=== PATIENT | male | born 1965 | race African-American/Black ===

== ENCOUNTER 2018-11-24 00:19 | Inpatient (IN) | payer OTHER ==
[2018-11-24] MEDS ORDERED: Ketorolac INJ* 30 MG/ML 1 ML VIAL IV PUSH ONE (00:39)
[2018-11-24] MEDS ORDERED: NS 0.9% 1000 ML** 2,000 ML IV ONE (00:39)
--- NOTE | 2018-11-24 00:46 | ED ---
GI/ HPI - HPI Summary HPI Summary: 53-year-old male presents with abdominal pain. The pain is located in the right lower quadrant. He admits to loose stool. He denies any blood or mucus in stool. No recent antibiotic use. Stools are not watery. Denies any nausea vomiting. No history of diverticulitis or colitis. No previous bowel surgeries. Has no medical conditions. Denies any fevers. No chest pain or shortness breath. took ibuprofen for the pain without relief. Walking does not change pain. - History of Current Complaint Chief Complaint: EDAbdPain Time Seen by Provider: 11/24/18 00:30 Stated Complaint: ABD PAIN PER CO Pain Intensity: 8 - Allergy/Home Medications Allergies/Adverse Reactions: Allergies Allergy/AdvReac Type Severity Reaction Status Date / Time No Known Allergies Allergy Verified 11/24/18 00:22 PMH/Surg Hx/FS Hx/Imm Hx Endocrine/Hematology History: Denies: Hx Anticoagulant Therapy Cardiovascular History: Denies: Hx Hypertension Respiratory History: Denies: Hx Asthma Infectious Disease History: No Infectious Disease History: Denies: Traveled Outside the [place] in Last 30 Days - Family History Known Family History: Positive: Non-Contributory - Social History Alcohol Use: None Substance Use Type: Reports: None Smoking Status (MU): Current Every Day Smoker Review of Systems Negative: Fever Negative: Chest Pain Negative: Shortness Of Breath Positive: Abdominal Pain, Diarrhea. Negative: Vomiting, Nausea All Other Systems Reviewed And Are Negative: Yes Physical Exam Triage Information Reviewed: Yes Vital Signs On Initial Exam: Initial Vitals Temp Pulse Resp BP Pulse Ox 98.2 F 66 18 117/82 97 11/24/18 00:20 11/24/18 00:20 11/24/18 00:20 11/24/18 00:20 11/24/18 00:20 Vital Signs Reviewed: Yes Appearance: Positive: Well-Appearing Skin: Positive: Warm, Dry Head/Face: Positive: Normal Head/Face Inspection Eyes: Positive: Normal, Conjunctiva Clear ENT: Positive: Pharynx normal Respiratory/Lung Sounds: Positive: Clear to Auscultation, Breath Sounds Present Cardiovascular: Positive: Normal, RRR Abdomen Description: Positive: Soft, Other: - tenderness in RLQ. Negative: CVA Tenderness (R), CVA Tenderness (L) Bowel Sounds: Positive: Present Musculoskeletal: Positive: Normal Neurological: Positive: Normal Psychiatric: Positive: Normal Diagnostics - Vital Signs Vital Signs Temp Pulse Resp BP Pulse Ox 11/24/18 00:20 98.2 F 66 18 117/82 97 - Laboratory Result Diagrams: 11/24/18 01:22 11/24/18 01:22 Lab Statement: Any lab studies that have been ordered have been reviewed, and results considered in the medical decision making process. Re-Evaluation - Re-Evaluation First Eval Re-Evaluation Time: 02:03 Change: Improved Comment: pain improved GIGU Course/Dx - Course Course Of Treatment: 53-year-old male presents with abdominal pain. The pain is located in the right lower quadrant. He admits to loose stool. He denies any blood or mucus in stool. No recent antibiotic use. Stools are not watery. Denies any nausea vomiting. No history of diverticulitis or colitis. No previous bowel surgeries. Has no medical conditions. Denies any fevers. No chest pain or shortness breath. took ibuprofen for the pain without relief. Walking does not change pain. On exam tenderness in right lower quadrant. No rebound. wbc 11. crp elevated. patient will be signed out to Dr Vogel pending CT - Diagnoses Differential Diagnoses - Male: Appendicitis, Colitis, Diverticulosis, Gastroenteritis (Viral) Provider Diagnoses: Acute abdominal pain, Terminal ileitis Discharge - Sign-Out/Discharge Documenting (check all that apply): Sign-Out Patient Signing out patient TO: Agusto Vogel - Discharge Plan Condition: Fair Disposition: ADMITTED TO [facility] Referrals: Yumiko MAE,Aureliano Mccrary [Primary Care Provider] - - Billing Disposition and Condition Condition: FAIR Disposition: Admitted to [facility]
[2018-11-24 01:39] LABS: ABS Eosinophils 0.1 10^3/ul (0-0.6); ABS Lymphocytes 2.3 10^3/ul (1.0-4.8); ABS Neutrophils 7.8 10^3/ul (1.5-7.7); Eosinophil % 1.2 %; Hematocrit 41 % (42-52); Hemoglobin 13.7 g/dL (14.0-18.0); Lymphocyte % 20.4 %; Mean Corpuscular HGB Conc 33 g/dL (31-36); Mean Corpuscular Hemoglobin 31 pg (27-31); Mean Corpuscular Volume 92 fL (80-94); Mean Platelet Volume 7.1 fL (7.4-10.4); Nucleated Red Blood Cells % 0.1; Platelet Count 238 10^3/uL (150-450); Red Blood Count 4.47 10^6 /uL (4.18-5.48); Red Cell Distribution Width 15 % (10-15); White Blood Count 11.3 10^3/uL (3.5-10.8)
[2018-11-24 01:49] LABS: Albumin 3.8 g/dL (3.2-5.2); Calcium 8.7 mg/dL (8.6-10.3); Potassium 3.6 mmol/L (3.5-5.0); Total Bilirubin 0.5 mg/dL (0.2-1.0)
[2018-11-24 01:55] LABS: Albumin/Globulin Ratio 1.4 (1-3); BUN/Creatinine Ratio 24.3 (8-20); C Reactive Protein 150.88 mg/L (<8.01); EGFR African American 134.4 (>60); EGFR Non-African American 111.1 (>60); Globulin 2.8 g/dL (2-4); Total Protein 6.6 g/dL (6.4-8.9)
[2018-11-24] MEDS ORDERED: Iohexol 300* (CONTRAST) 10 ML SDV IV ONE (02:34)
--- NOTE | 2018-11-24 02:56 | ED ---
Progress - Progress Note Progress Note: This patient was signed out from [place], to Dr. Vogel at 02:[address] abdomen pelvis. Abdomen/pelvis CT impression: Inflammatory changes involving the terminal ileum, cecum and ascending colon. This is typified by abnormal thickening of the bowel wall. Associated inflammatory changes involving the mesentery. Fluid located in the right lower paracolic gutter. Small mild fluid in the pelvis. Associated mesenteric adenopathy. These findings are consistent with an inflammatory bowel disorder like regional enteritis. However this is not pathognomonic. This could be secondary to an infection. ED physician has reviewed this imaging report. Discussed case with Dr. Adam, hospitalist, who accepted the patient for admission. The patient is agreeable with this plan. Re-Evaluation - Re-Evaluation First Eval Re-Evaluation Time: 02:03 Change: Improved Comment: pain improved Course/Dx - Course Course Of Treatment: This patient was signed out from [place] Park, to Dr. Vogel at 02:30 11/24/[address] abdomen pelvis. Abdomen/pelvis CT impression: Inflammatory changes involving the terminal ileum, cecum and ascending colon. This is typified by abnormal thickening of the bowel wall. Associated. inflammatory changes involving the mesentery. Fluid located in the right lower. paracolic gutter. Small mild fluid in the pelvis. Associated mesenteric. adenopathy. These findings are consistent with an inflammatory bowel disorder. like regional enteritis. However this is not pathognomonic. This could be. secondary to an infection. ED physician has reviewed this imaging report. Discussed case with Dr. Adam, stephen, who accepted the patient for admission. The patient is agreeable with this plan. - Diagnoses Provider Diagnoses: Acute abdominal pain, Terminal ileitis - Provider Notifications Discussed Care Of Patient With: Doyle Adam Time Discussed With Above Provider: 03:30 Instructed by Provider To: Admit As Inpatient Discharge - Sign-Out/Discharge Documenting (check all that apply): Patient Departure - admit, Receiving Sign- Out Receiving patient FROM: Maria Luz Ortiz - pending CT abdomen/pelvis Patient Received Moderate/Deep Sedation with Procedure: No - Discharge Plan Condition: Fair Disposition: ADMITTED TO [facility] Referrals: Yumiko MAE,Aureliano Mccrary [Primary Care Provider] - - Billing Disposition and Condition Condition: FAIR Disposition: Admitted to [facility] - Attestation Statements Document Initiated by Lee: Yes Documenting Scribe: Andrews Avery Provider For Whom Lee is Documenting (Include Credential): Agusto Vogel MD Scribe Attestation: Andrews Garcia, scribed for Agusto Vogel MD on 11/24/18 at 0603. Scribe Documentation Reviewed: Yes Provider Attestation: The documentation as recorded by the Andrews cabrera accurately reflects the service I personally performed and the decisions made by meAgusto MD Status of Scribe Document: Viewed
[2018-11-24 04:27] LABS: Urine Appearance Clear; Urine Bacteria Absent (Absent); Urine Bilirubin Negative (Negative); Urine Blood 1+ (Negative); Urine Color Yellow; Urine Glucose Negative (Negative); Urine Ketones Negative (Negative); Urine Nitrite Negative (Negative); Urine Protein Negative (Negative); Urine Red Blood Cell Trace(0-2/hpf) (Absent); Urine Specific Gravity 1.011 (1.010-1.030); Urine Urobilinogen Negative (Negative); Urine White Blood Cell Trace(0-5/hpf) (Absent)
[2018-11-24] MEDS ORDERED: Ciprofloxacin 400MG IVPREMIX(* 400 MG/200 ML BAG IVPB ONE (05:30)
--- NOTE | 2018-11-24 05:45 | HP ---
History of Present Illness - History of Present Illness Reason for Visit: Abdominal Pain and diarrhea History of Present Illness: 53yoM with no past medical history here due to RLQ abdominal pain and diarrhea for over two weeks. He has seen the residential RN who gave a dose of miralax yesterday but patient hasn't improved. Denies any fever, chills or vomiting. Or any chest pain or shortness of breath. - Past Surgical History Past Surgical History: Other - States he had some testicular surgery when he was 9 years old but no testies were removed. - Past Family History Family History: None - Past Social History Smoke: 1 pack per day, <1 pack per day Alcohol: None Drugs: Marijuana - Used to smoke 8 years ago but never tried anything else. Review of Systems - Measurements Intake and Output: Intake and Output Last 24 Hours 11/21/18 11/22/18 11/23/18 11/24/18 06:59 06:59 06:59 06:59 Intake Total 1000 Balance 1000 Weight 187 lb Intake: IV Fluids 1000 - Review of Systems Constitutional Symptoms: Negative: Weakness, Fever Dermatology: Positive: Normal HEENT: Negative: Change in Hearing Eyes: Negative: Change in Vision Pulmonary: Negative: Cough, Sputum, Wheezing, Respiratory Distress, Shortness of Breath Cardiology: Negative: Chest Pain, Shortness of Breath Gastroenterology: Positive: Abdominal Pain, Diarrhea Hematologic/Lymphatic: Negative: Anemia Neurology: Negative: Headache Psychiatry: Negative: Depression Objective Active Medications: Ciprofloxacin/Dextrose (Cipro 400 Mg Ivpremix(*)) 400 mg in 200 mls @ 200 mls/ hr IVPB Q12H HUMPHREY; Protocol Metronidazole/Sodium Chloride (Flagyl 500 Mg Ivpb*) 500 mg in 100 mls @ 100 mls /hr IVPB Q8H HUMPHREY Ciprofloxacin/Dextrose (Cipro 400 Mg Ivpremix(*)) 400 mg in 200 mls @ 200 mls/ hr IVPB ONCE ONE Stop: 11/24/18 06:29 Vital Signs - 8 hr 11/24/18 11/24/18 00:20 03:40 Temperature 98.2 F 98.6 F Pulse Rate 66 53 Respiratory 18 16 Rate Blood Pressure 117/82 125/65 (mmHg) O2 Sat by Pulse 97 98 Oximetry Oxygen Devices in Use Now: None Eyes: No Scleral Icterus, PERRLA Ears/Nose/Mouth/Throat: NL Teeth, Lips, Gums, Mucous Membranes Moist Neck: NL Appearance and Movements; NL JVP Respiratory: Clear to Auscultation Cardiovascular: NL Sounds; No Murmurs; No JVD Abdominal: - - Severe RLQ tenderness. Skin: No Rash or Ulcers Neurological: Alert and Oriented x 3, NL Sensation, NL Muscle Strength and Tone Result Diagrams: 11/24/18 01:22 11/24/18 01:22 Diagnostic Imaging: CT ABD/PELVIS IMPRESSION: Inflammatory changes involving the terminal ileum, cecum and ascending colon. This is typified by abnormal thickening of the bowel wall. Associated inflammatory changes involving the mesentery. Assess/Plan/Problems-Billing Assessment: 53yoM without any medical problem sent from residential due to RLQ pain. Admitted to inflammatory changes to Cecum and ascending colon. - Patient Problems (1) Colitis, acute Current Visit: Yes Status: Acute Code(s): K52.9 - NONINFECTIVE GASTROENTERITIS AND COLITIS, UNSPECIFIED SNOMED Code(s): 21400704 Comment: Infectious vs inflammatory. Start Cipro/Flagyl for now. Consult GI regarding any further colonoscopy. Allergies/Medications Allergies/Adverse Reactions: Allergies Allergy/AdvReac Type Severity Reaction Status Date / Time No Known Allergies Allergy Verified 11/24/18 00:22
[2018-11-24] MEDS ORDERED: diPHENhydraMINE IV* 50 MG/ML 1 ml VIAL (BENADRYL) ONE (06:55)
[2018-11-24] MEDS ORDERED: diPHENhydraMINE IV* 50 MG/ML 1 ml VIAL (BENADRYL) IV ONE (06:57)
[2018-11-24] MEDS ORDERED: methylPREDNISolone 125 MG* 2 ML VIAL ONE (07:10)
[2018-11-24] MEDS ORDERED: methylPREDNISolone 125 MG* 2 ML VIAL IV ONE (07:12)
[2018-11-24] MEDS ORDERED: Albuterol 2.5 MG/3 ML NEB.SOL* (0.083%) INH ONE (07:42)
--- NOTE | 2018-11-24 07:44 | ED ---
Progress - Progress Note Progress Note: 0713 - Patient had been given Cipro and had an allergic reaction within a minute of Cipro administration. Patient had normal speech, hives at left antecubital area just above IV. Faint hives at chest, scattered expiratory wheezes. Uvula is midline and not swollen. Cirpo discontinued immediately, Dr. Balderrama gave verbal orders for Benadryl and Solu-medrol. Respiratory called for albuterol treatment. 0734 - Patient's case was discussed with Dr. Carline Leyva. 0742 - [facility], discussed patient's case and the need for solu-medrol and Benadryl verbal orders to be signed. She changed order for Benadryl and Solu- Medrol to be listed under Princess Balderrama. She will call hospitalist to change antibiotics for the patient and pt will be listed as allergic to Cipro. Re-Evaluation - Re-Evaluation First Eval Re-Evaluation Time: 07:13 Change: Worse Comment: 0713 - Patient had been given Cipro and had an allergic reaction within a minute of Cipro administration. Patient had normal speech, hives at left antecubital area just above IV. Faint hives at chest, scattered expiratory wheezes. Uvula is midline and not swollen. Cirpo discontinued immediately, Dr. Balderrama gave verbal orders for Benadryl and Solu-medrol. Respiratory called for albuterol treatment. Course/Dx - Course Course Of Treatment: 13 - Patient had been given Cipro and had an allergic reaction within a minute of Cipro administration. Patient had normal speech, hives at left antecubital area just above IV. Faint hives at chest, scattered expiratory wheezes. Uvula is midline and not swollen. Cirpo discontinued immediately, Dr. Balderrama gave verbal orders for Benadryl and Solu-medrol. Respiratory called for albuterol treatment. 0734 - Patient's case was discussed with Dr. Danita Leyva. 0742 - [facility], discussed patient's case and the need for solu-medrol and Benadryl verbal order. She changed order for Benadryl to be listed under Princess Balderrama. She will call hospitalist to change antibiotics for the patient. Acceptance of patient had already been obtained by previous ED physician, Dr. Vogel. Patient remains agreeable with admission. - Diagnoses Provider Diagnoses: Colitis, Abdominal pain, Acute allergic reaction - Provider Notifications Discussed Care Of Patient With: Carline Leyva Time Discussed With Above Provider: 07:34 Instructed by Provider To: Other - 0734 - Patient's case was discussed with Dr. Carline Leyva. Dr. Leyva is advised that pt is allergic to Cipro and she will change his inpatient antibiotics. Discharge - Sign-Out/Discharge Documenting (check all that apply): Patient Departure - admit All imaging exams completed and their final reports reviewed: Yes Patient Received Moderate/Deep Sedation with Procedure: No - Discharge Plan Condition: Stable Disposition: ADMITTED TO [facility] - Billing Disposition and Condition Condition: STABLE Disposition: Admitted to [facility] - Attestation Statements Document Initiated by Lee: Yes Documenting Scribe: JASBIR STRATTON Provider For Whom Lee is Documenting (Include Credential): PRINCESS BALDERRAMA MD Scribe Attestation: JASBIR Garcia, scribed for PRINCESS BALDERRAMA MD on 11/26/18 at 2049. Scribe Documentation Reviewed: Yes Provider Attestation: The documentation as recorded by the JASBIR cabrera accurately reflects the service I personally performed and the decisions made by , PRINCESS BALDERRAMA MD Status of Scribe Document: Viewed
[2018-11-24] MEDS: NS 0.9% 1000 ML** 1,000 ML IV SCH ×2 (08:50→23:45)
[2018-11-24] MEDS: metroNIDAZOLE IV 500 MG/100ML* 500 MG/100 ML BAG IVPB SCH ×2 (10:21→16:35)
[2018-11-24] MEDS: cefTRIAXone* 1 GM in NS 0.9% 50 ML BAG IVPB SCH (11:33)
--- NOTE | 2018-11-24 17:22 | PN ---
Progress Note - Progress Note Date of Service: 11/24/18 Note: Patient interviewed and examined 4 PM. Mod RLQ tenderness. Hx pain x 2 wks. No family hx of bowel disease. Abnl CT scan and CRP, 2 wk hx of pain is suspicious for inflammatory bowel disease. Discussed with Dr. Ashton, consult requested. Possible limited colonoscopy 11/25. NPO after MN, clear liquid dinner today.
[2018-11-24] MEDS ORDERED: Ciprofloxacin 400MG IVPREMIX(* 400 MG/200 ML BAG IVPB SCH (18:00)
[2018-11-25] MEDS: cefTRIAXone* 1 GM in NS 0.9% 50 ML BAG IVPB SCH ×2 (01:38→10:32)
[2018-11-25] MEDS: metroNIDAZOLE IV 500 MG/100ML* 500 MG/100 ML BAG IVPB SCH ×2 (01:43→08:21)
--- NOTE | 2018-11-25 09:13 | PN ---
Progress Note - Progress Note Date of Service: 11/25/18 Note: Gi Brief Note Full consult dictated 53 year old male with RLQ pain, prior episode in February resolved on own. No black or blood. Now pain better, nearly resolved except for mild LLQ. Tolerating PO CT: Colitis/ileitis cecum/ascend/TI a/p 1.) Indeterminate colitis: cdiff neg, cultures pending but negative to date. Improved with IVF and antibiotics. Patient prefers to not be in hospital. Would prefer an outpatient colonoscopy. Clinically improved. Discussed risks, benefits and alternatives and would like to proceed with colonoscopy as outpatient. Change to PO antibiotics (e.g vantin/flagyl) x 14 days total. Will plan on outpatient colonoscopy in 2-3 weeks. Once tolerating PO and diet ok to be d/c from GI POSandy Ashton DO 11/25/18 [id number]
--- NOTE | 2018-11-25 12:36 | PN ---
Subjective Interval History: Afebrile, no acute events overnight Pain in suprapubic and LLQ resolved. RLQ pain improved to 3-4/10. states he had either [facility] or [facility]. Had regular dinner last night then npo midnight. Said he would refuse a colonoscopy unless completely sedated. Very worried (to the point of shouting) about any potential discharge today - wants to confirm that the po meds are continuing to help with his pain/ infection as feels completely without support if something were to regress at 5 points given lack of timely medical assessment. colonoscopy in 2-3 weeks per GI. BMs two regular yesterday. appetite improved, hungry and wanting to eat. Objective Active Medications: Cefdinir (Cefdinir Cap*) 300 mg PO BID [facility] Sodium Chloride (Ns 0.9% 1000 Ml) 1,000 mls @ 75 mls/hr IV PER RATE [facility] Last Admin: 11/24/18 23:45 Dose: 75 mls/hr Metronidazole (Flagyl Tab*) 500 mg PO TID [facility] Vital Signs - 8 hr 11/25/18 11/25/18 07:15 08:00 Temperature 97.6 F Pulse Rate 54 Respiratory 16 16 Rate Blood Pressure 110/63 (mmHg) O2 Sat by Pulse 98 Oximetry Oxygen Devices in Use Now: None Appearance: NAD Eyes: No Scleral Icterus, PERRLA Ears/Nose/Mouth/Throat: NL Teeth, Lips, Gums Neck: NL Appearance and Movements; NL JVP Respiratory: Symmetrical Chest Expansion and Respiratory Effort Cardiovascular: NL Sounds; No Murmurs; No JVD Abdominal: - - soft, moderate RLQ pain, no rebound or guarding. Extremities: No Edema, No Clubbing, Cyanosis Skin: No Rash or Ulcers Neurological: Alert and Oriented x 3, NL Muscle Strength and Tone Nutrition: Taking PO's Result Diagrams: 11/25/18 12:42 11/24/18 01:22 Additional Lab and Data: Laboratory Results - last 24 hr 11/25/18 11/25/18 12:41 12:42 WBC 16.6 H RBC 4.22 Hgb 12.4 L Hct 38 L MCV 90 MCH 30 MCHC 33 RDW 14 Plt Count 293 MPV 7.3 L Neut % (Auto) 80.9 Lymph % (Auto) 13.2 Metcalfe % (Auto) 5.2 Eos % (Auto) 0.4 Baso % (Auto) 0.3 Absolute Neuts (auto) 13.4 H Absolute Lymphs (auto) 2.2 Absolute Monos (auto) 0.9 H Absolute Eos (auto) 0.1 Absolute Basos (auto) 0.1 Absolute Nucleated RBC 0.0 Nucleated RBC % 0.0 C-Reactive Protein 105.28 H Microbiology and Other Data: Microbiology 11/24/18 14:00 Stool Stool Gross Appearance - Final 11/24/18 14:00 Stool Shiga Toxin I & II - Final Negative Shiga Toxin 1 & 2 11/24/18 04:15 Urine Urine Culture - Final No Growth (<1,000 CFU/mL) 11/24/18 14:00 Stool Stool Gross Appearance - Final 11/24/18 14:00 Stool C. difficile DNA Amplification - Final 027 Presumptive NEGATIVE Toxigenic C.diff NEGATIVE Diagnostic Imaging: CT ABD/PELVIS IMPRESSION: Inflammatory changes involving the terminal ileum, cecum and ascending colon. This is typified by abnormal thickening of the bowel wall. Associated inflammatory changes involving the mesentery. Assess/Plan/Problems-Billing Assessment: 53 yoM from [facility] current smoker [facility] due to RLQ pain. Admitted to inflammatory changes to Cecum and ascending colon. - Patient Problems (1) Colitis, acute Current Visit: Yes Status: Acute Code(s): K52.9 - NONINFECTIVE GASTROENTERITIS AND COLITIS, UNSPECIFIED SNOMED Code(s): 41339274 Comment: Infectious vs inflammatory. appreciate GI recs. Will plan as outpatient in 2-3 weeks. with improving RLQ denies blood in BMS low fiber diet. transition from IV cftx/flagyl to po cefdinir/flagyl. Likely d/c in AM with continued improvement. Limited access to volitional medical reassessment given incarceration. Leukocytosis worsening but CRP improved (2) Full code status Current Visit: Yes Status: Acute Code(s): Z78.9 - OTHER SPECIFIED HEALTH STATUS SNOMED Code(s): 427879959 (3) Smoker Current Visit: Yes Status: Acute Code(s): F17.200 - NICOTINE DEPENDENCE, UNSPECIFIED, UNCOMPLICATED SNOMED Code(s): 12286353 Status and Disposition: medicine inpatient, likely back to [facility] 7/6 if continued improvement.
[2018-11-25 12:56] LABS: ABS Basophils 0.1 10^3/ul (0-0.2); ABS Eosinophils 0.1 10^3/ul (0-0.6); ABS Lymphocytes 2.2 10^3/ul (1.0-4.8); ABS Monocytes 0.9 10^3/ul (0-0.8); ABS Neutrophils 13.4 10^3/ul (1.5-7.7); Eosinophil % 0.4 %; Hematocrit 38 % (42-52); Hemoglobin 12.4 g/dL (14.0-18.0); Lymphocyte % 13.2 %; Mean Corpuscular HGB Conc 33 g/dL (31-36); Mean Corpuscular Hemoglobin 30 pg (27-31); Mean Corpuscular Volume 90 fL (80-94); Mean Platelet Volume 7.3 fL (7.4-10.4); Platelet Count 293 10^3/uL (150-450); Red Blood Count 4.22 10^6 /uL (4.18-5.48); Red Cell Distribution Width 14 % (10-15); White Blood Count 16.6 10^3/uL (3.5-10.8)
[2018-11-25] MEDS: metroNIDAZOLE TAB* 250 MG PO SCH ×2 (13:31→20:47)
[2018-11-25] MEDS: NS 0.9% 1000 ML** 1,000 ML IV SCH (13:31)
[2018-11-25] MEDS: Cefdinir cap* 300 MG CAP PO SCH (15:10)
--- NOTE | 2018-11-25 18:55 | CONS ---
CC: Dr. Aureliano Calderon * CONSULTATION REPORT: DATE OF CONSULT: 11/25/18 PRIMARY CARE PROVIDER: Dr. Aureliano Calderon. REASON FOR CONSULTATION: Colitis. HISTORY OF PRESENT ILLNESS: This is a 53-year-old -[place]ian man, currently incarcerated, who presented to the ER on 11/24/18 with complaints of right lower quadrant abdominal pain and loose stool. He denies any yadi melena or hematochezia. He states he had a prior episode that was similar back in February that resolved on its own after 2 to 3 days; however, this episode continued to occur. He states these symptoms probably began about 5 or 6 days ago, but may have been lasting as long as 2 weeks. He states that he has had a little bit of difficulty moving his bowels. Denies any fever, chills, or rigors. He admits to right lower quadrant pain, but states that yesterday the pain was quite diffuse in nature and far more intense. He denies any dysphagia or odynophagia. Denies any weight loss or gain. Denies any skin rashes or lesions. No joint aches or pains. No eye or vision difficulties. He has never had a colonoscopy before. Remainder of the 14-point review of systems is grossly negative. PAST MEDICAL HISTORY: None. PAST SURGICAL HISTORY: Testicular surgery when he was younger. ALLERGIES: Include CIPROFLOXACIN. FAMILY HISTORY: No family history of inflammatory bowel disease or GI cancer. SOCIAL HISTORY: He smokes 1 pack a day. No alcohol use. REVIEW OF SYSTEMS: Remainder of the 14-point review of systems is grossly negative. PHYSICAL EXAMINATION: Vital Signs: Blood pressure 110/63, pulse 54, respiratory rate 16, 98% on room air. In general, alert and oriented x3, in no acute distress. HEENT: Atraumatic, normocephalic. Pupils equal, round, and reactive to light. Extraocular movements are intact. Conjunctivae are pink. Sclerae icteric. Cardiovascular: Regular rate and rhythm. S1, S2. Respiratory : Clear to auscultation bilaterally. Abdomen: Soft, slight tenderness to palpation in the right lower quadrant with deep palpation; otherwise, nontender. Bowel sounds positive. No guarding. No rebound tenderness. No palpable hepatosplenomegaly. Extremities: No clubbing, no cyanosis, no edema. Psych: Appropriate mood and affect. Skin: No visible rash or lesions. DIAGNOSTIC STUDIES/LAB DATA: Laboratory Data: Hemoglobin initially 13.7; now 12.4, WBC count 11.3; now 16.6, platelet count 293. CRP 105, bilirubin 0.5, AST 16, ALT 14, alkaline phosphatase 66. Glucose 91, BUN 18, creatinine 0.74, sodium 135. Amylase and lipase are 47 and 11, respectively. He had a CT of the abdomen and pelvis on 11/24/18. This revealed inflammatory changes involving the terminal ileum, cecum, and ascending colon. The appendix was visualized without evidence of appendicitis. ASSESSMENT AND PLAN: This is a 53-year-old male with indeterminate colitis on CAT scan and right lower quadrant pain. Indeterminate colitis. High suspicion for inflammatory bowel disease. His CRP is elevated. Cultures today have been negative. He is negative for Clostridium difficile. The distribution is concerning for potentially Crohn disease. Await final results of cultures. I had a discussion with the patient regarding inpatient versus outpatient colonoscopy. At this point, he seems to be responding well to the initial dose of methylprednisolone and antibiotics given via the IV. He is hungry, and his pain is very tolerable at this point, and he feels vastly improved. He would prefer to do an outpatient colonoscopy, which given his improvement is reasonable. Would recommend continuing oral medications for a total of 14 days of antibiotic therapy, likely cefpodoxime p.o. and metronidazole or a combination with a similar coverage spectrum. We will plan on a colonoscopy in 2 to 3 weeks' time allowing completion of antibiotic therapy. If he has worsening of his pain or develops hematochezia or frequent diarrhea, would plan on a colonoscopy sooner. All questions answered and risks, benefits, and alternatives to colonoscopy were discussed and the patient would like to proceed as outlined. [id number]/[facility] #: [id number] LINDA
[2018-11-26] MEDS: Acetaminophen TAB* 325 MG PO PRN ×2 (00:25→09:51)
[2018-11-26 06:51] LABS: ABS Basophils 0.1 10^3/ul (0-0.2); ABS Eosinophils 0.1 10^3/ul (0-0.6); ABS Lymphocytes 2.5 10^3/ul (1.0-4.8); ABS Monocytes 0.8 10^3/ul (0-0.8); ABS Neutrophils 9.2 10^3/ul (1.5-7.7); Hematocrit 36 % (42-52); Hemoglobin 12.3 g/dL (14.0-18.0); Lymphocyte % 19.8 %; Mean Corpuscular HGB Conc 34 g/dL (31-36); Mean Corpuscular Hemoglobin 30 pg (27-31); Mean Corpuscular Volume 90 fL (80-94); Mean Platelet Volume 7.5 fL (7.4-10.4); Nucleated Red Blood Cells % 0.1; Platelet Count 270 10^3/uL (150-450); Red Blood Count 4.04 10^6 /uL (4.18-5.48); Red Cell Distribution Width 14 % (10-15); White Blood Count 12.8 10^3/uL (3.5-10.8)
[2018-11-26] MEDS: metroNIDAZOLE TAB* 250 MG PO SCH (09:51)
[2018-11-26] MEDS: Cefdinir cap* 300 MG CAP PO SCH (09:51)
[2018-11-26 10:02] VITALS: BP 131/84
--- NOTE | 2018-11-26 11:04 | PN ---
Progress Note - Progress Note Date of Service: 11/26/18 Note: Time spent on discharge including exam of patient, discussion with patient, guards, nurse, CM, review of EMR and preparation of dischareg documents is 45 minutes.
--- NOTE | 2018-11-26 11:47 | DS ---
DISCHARGE SUMMARY: DATE OF ADMISSION: DATE OF DISCHARGE: 11/26/18 HISTORY OF PRESENT ILLNESS: This 53-year-old man presented with history of right lower quadrant pain for 2 weeks. He had a few loose bowel movements, no vomiting. Denied any weight loss. There is no family history of bowel disease. The rest of the history and physical exam was detailed in the admission note. The patient was started on Cipro and Flagyl (metronidazole). He had a CRP of 151, which fell to 105 the following day. His pain improved. He was able to tolerate a normal diet. Dr. Ashton saw him o n consultation and felt he should take cephalosporin and metronidazole for a total of 14 days and we will plan on doing an outpatient colonoscopy. This is the patient's preference as well. The patient should see Dr. Ashton in 2 to 3 weeks for outpatient colonoscopy. FINAL DIAGNOSIS: Indeterminate colitis. DISCHARGE MEDICATIONS: 1. Cefdinir 300 mg b.i.d. for 12 days. 2. Metronidazole 500 mg t.i.d. for 12 days. DISPOSITION ON DISCHARGE: [facility]. CONDITION ON DISCHARGE: Improved. [id number]/[facility] #: [id number]
== END 2018-11-26 13:15 | DRG 249 ==
LOC: ED 00:19 → MED 05:48
PROVIDERS: ADMIT Internal Medicine; ATTEND Internal Medicine
DX: K52.9 Noninfective gastroenteritis and colitis, unspecified (principal); F17.210 Nicotine dependence, cigarettes, uncomplicated
CPT/HCPCS: 36415; 74177; 80053; 81003; 81015; 82150; 83605; 83690; 85025; 86140; 87045; 87046; 87077; 87086; 87493; 87899; 99284; A9270-GY; J0696; J0744; J1200; J1885; J2930; J3490; Q9967